=== PATIENT | male | born 1935 | race Caucasian/White ===

== ENCOUNTER 2017-05-10 11:25 | Outpatient (CLI) | payer MEDICARE, OTHER ==
[~2017-05-10] VITALS: Ht 175.3 cm; Wt 69.1 kg
--- NOTE | ~2017-05-10 | HEMODYNAMI ---
PATIENT:SATNAM LIU MEDICAL RECORD: [id number] : 35 LOCATION:D.CAT ADMISSION DATE: 05/10/17 Generatedon:05/10/201716:13 Patient name: SATNAM LIU Patient #: [id number] SSN: : 1935 Date of study: 05/10/2017 Page: Of Hemodynamic Procedure Report Patient Data Patient Demographics Procedure consent was obtained First Name: SATNAM Gender: Male Last Name: NOE : 1935 [facility] Initial: SARAH Age: 81 year(s) Patient #: [id number] Race: Additional ID: [id number] Contact details Address: [address] [place] [address] State: [place] City: [place] Zip code: [address] Past Medical History Allergies Allergen Reaction Date Comments Reported Penicillins 02/26/2014 Aspirin 02/26/2014 Other allergy 05/10/2017 PCN Admission Admission Data Admission Date: 05/10/2017 Admission Time: 11:25 Height (in.): 70 BSA: 1.89 (m2) Height (cm.): 177.8 BMI: 22.81 (kg/m2) Weight (lbs.): 159 Weight (kg.): 72.12 Procedure Procedure Types Cath Procedure Diagnostic Procedure C [facility] w/Coronaries Sedation Charges Moderate Sedation up to 30 minutes PCI Procedure Coronary Stent Coronary Stent Initial Procedure Description Procedure Date Procedure Date: 05/10/2017 Procedure Start Time: 15:45 Procedure End Time: 16:11 Procedure Staff Name Function Domingo Escoto MD Performing Physician Alejandra Figueroa RT Religion Teacher Franca Vela RT Monitor Cedrick Simon RT Scrub Dillon Orozco RN Nurse Procedure Data Cath Procedure Fluoroscopy Diagnostic fluoroscopy Total fluoroscopy Time: 6.1 time: 6.1 min min Diagnostic fluoroscopy Total fluoroscopy dose: dose: 1188 mGy 1188 mGy Contrast Material Contrast Material Type Amount (ml) Isovue 300 167 Entry Location Entry Primary Successful Side Size Upsize Upsize Entry Closure Succes sful Closure Location (Fr) 1 (Fr) 2 (Fr) Remarks Device Remarks Femoral Right 5 Fr 6 Fr Exoseal artery Short Estimated blood loss: 10 ml Diagnostic catheters Device Type Used For End Catheter Placement MULTIPACK JL 4.0 5Fr Procedure catheter MULTIPACK 3DRC 5Fr Procedure catheter MULTIPACK Pigtail 5 Fr Procedure catheter Procedure Complications No complications Procedure Medications Medication Administration Route Dosage Oxygen NC 2 l/min Lidocaine 2% added to field 20 Heparin Flush Bag added to field 2 bags (1000units/500ml NS) 0.9% NaCl I.V. 100 ml/hr Versed I.V. 1 mg Fentanyl I.V. 50 mcg Versed I.V. 1 mg Fentanyl I.V. 50 mcg Heparin Bolus I.V. 7000 units Versed I.V. 1 mg Plavix P.O. 600 mg Hemodynamics Rest BSA: 1.89 (m2) O2 Consumption: Estimated: 224.36 (ml/min) O2 Consumption indexed : Estimated:118.71 (ml/min/m) Heart Rate: 82 (bpm) Pressure Samples Time Site Value (mmHg) Purpose Heart Use Rate(bpm) 15:52 LV 98/-13,0 Snapshot 81 15:53 AO 100/52(72) Pullback 67 15:53 LV 104/-13,0 Pullback 67 Gradients Valve Time Site 1 Site 2 Mean SEP/DFP Peak To Heart Use (mmHg) (sec/min) Peak Rate (mmHg) (bpm) Aortic 15:53 LV AO 11 15 4 67 104/-13,0 100/52(72) Calculations Valve P-P Mean Valve Index Valve Source Name Gradient Area Flow (cm2) Aortic 4 11 4 11 Snapshots Pre Cath Intra NCS Post Cath Vital Signs Time Heart Resp SPO2 etCO2 NIBP (mmHg) Rhythm Pain Sedation Rate (ipm) (%) (mmHg) Status Level (bpm) 15:38:59 79 17 98 0 131/84(107) NSR 0 (11) 10(A) , No pain 15:43:13 83 15 97 0 104/67(77) NSR 0 (11) 10(A) , No pain 15:47:17 85 16 97 0 116/71(93) NSR 0 (11) 9(A) , No pain 15:51:27 83 17 98 0 115/71(92) NSR 0 (11) 9(A) , No pain 15:55:37 82 18 99 0 116/78(88) NSR 0 (11) 9(A) , No pain 15:59:47 81 18 99 0 109/70(90) NSR 0 (11) 9(A) , No pain 16:04:48 83 15 99 0 112/80(93) NSR 0 (11) 10(A) , No pain 16:08:51 81 15 99 0 126/84(105) NSR 0 (11) 10(A) , No pain Medications Time Medication Route Dose Verified Delivered Reason Notes Effectiveness by by 15:40:10 Oxygen NC 2 Domingo Buffie used for l/min Nick Orozco RN procedure 15:40:18 Lidocaine 2% added 20ml Domingo Domingo for local to vial Nick Escoto MD anesthetic field 15:40:24 Heparin Flush added 2 Domingo Domingo used for Bag to bags Nick Escoto MD procedure (1000units/500ml field NS) 15:40:32 0.9% NaCl I.V. 100 Domingo Buffie Per physician ml/hr Nick Orozco RN 15:40:42 Versed I.V. 1 mg Domingo Buffie for sedation Nick Orozco RN 15:40:47 Fentanyl I.V. 50 Domingo Buffie for sedation mcg Nick Orozco RN 15:45:24 Versed I.V. 1 mg Domingo Buffie for sedation Nick Orozco RN 15:45:29 Fentanyl I.V. 50 Domingo Buffie for sedation mcg Nick Orozco RN 15:58:08 Heparin Bolus I.V. 7000 Domingo Buffie for verifi ed units Nick Orozco RN anticoagulation with dr escoto 16:04:54 Versed I.V. 1 mg Domingo Buffie for sedation Nick Orozco RN 16:09:42 Plavix P.O. 600 Domingo Buffie for mg Nick Orozco RN antiplatelet therapy Procedure Log Time Note 15:20:32 Patient Height : 70 inches 15:20:49 Patient Weight : 159 lbs 15:25:12 Diagnostic Cath status Elective 15:25:58 Time tracking: Regular hours 15:26:11 Alejandra Counts RT(R) sent for patient. Start room use. 15:26:22 Patient received from Pre/Post Procedure Room to CCL 2 Alert and oriented. Tansferred to table in Supine position. 15:26:23 Warm blankets applied, and gabriel hugger turned on for patient comfort. 15::24 Correct patient and procedure confirmed by team. 15::26 Signed procedure consent form obtained from patient. 15:26:27 ECG and BP/O2 sat monitors applied to patient. 15:26:48 H&P Date Dictated: 04/25/2017 Within 30 days and on chart., H&P Addendum completed by physician on day of procedure. (MUST COMPLETE FOR ALL OUTPATIENTS). 15::49 Pre-procedure instructions explained to patient. 15::51 Family in waiting room. 15::53 Patient NPO since Midnight. 15:27:09 Patient allergic to Other allergyPCN 15:27:13 Was the patient premedicated? Yes 15:33:29 Is patient on blood thinner?No 15:33:32 Patient diabetic? No. 15:33:37 Snore? Yes 15:33:38 Sleep apnea? No 15:33:45 Dentures? No ? 15:33:49 Patient pain scale 0/10 ?. 15:34:06 IV patent on arrival in left antecubital with 0.9% NaCl at O. 15:35:01 Lab results completed and on chart. 15:35:06 Right groin area was prepped with chlora-prep and draped in sterile fashion 15:35:07 Alarms reviewed by R. N. 15:35:07 Sharps counted by scrub and verified by R.N. 15:35:09 Physician paged 15:35:10 Physician arrived 15:35:10 --------ALL STOP TIME OUT------ 15:35:11 Final Timeout: patient, procedure, and site verified with staff and physician. All members of the team are in agreement. 15:35:15 Right groin site verified by team. 15:35:18 Physical assessment completed. ASA score P 2 - A patient with mild systemic disease as per Domingo Escoto MD. 15:35:22 Sedation plan: IV Moderate Sedation Medication:Versed, Fentanyl 15:37:59 Vital chart was started 15:40:10 Oxygen 2 l/min NC was administered by Dillon Orozco RN; used for procedure; 15:40:18 Lidocaine 2% 20ml vial added to field was administered by Domingo Escoto MD; for local anesthetic; 15:40:24 Heparin Flush Bag (1000units/500ml NS) 2 bags added to field was administered by Domingo Escoto MD; used for procedure; 15:40:32 0.9% NaCl 100 ml/hr I.V. was administered by Dillon Orozco RN; Per physician; 15:40:42 Versed 1 mg I.V. was administered by Dillon Orozco RN; for sedation; 15:40:47 Fentanyl 50 mcg I.V. was administered by Dillon Orozco RN; for sedation; 15:42:52 Full Disclosure recording started 15:42:56 Baseline sample Acquired. 15:43:07 Use device set Femoral Dx 15:43:09 ACIST Syringe (15418) opened to sterile field. 15:43:10 Bag Decanter (2002S) opened to sterile field. 15:43:10 Medline Cath Pack ([id number]) opened to sterile field. 15:43:11 SHEATH 5FR Hernandez (MCO353) opened to sterile field. 15:43:11 DIAGNOSTIC WIRE .035 260cm J wire (363684) opened to sterile field. 15:43:12 ACIST Hand Control (62852) opened to sterile field. 15:43:13 ACIST Manifold (18613) opened to sterile field. 15:43:13 DIAGNOSTIC Multipack 5Fr catheter set (CX1521) opened to sterile field. 15:43:13 Tegaderm 4 x 4 (1626W) opened to sterile field. 15:43:14 PERCUTANEOUS ENTRY 19GA needle opened to sterile field. 15:44:56 Procedure started. 15:45:24 Versed 1 mg I.V. was administered by Dillon Orozco RN; for sedation; 15:45:29 Fentanyl 50 mcg I.V. was administered by Dillon Orozco RN; for sedation; 15:45:48 Local anesthetic to right femoral artery with Lidocaine 2% by Domingo Escoto MD.INITIAL ACCESS ONLY 15:46:37 A 5 Fr sheath was inserted into the Right Femoral artery 15:47:41 A MULTIPACK JL 4.0 5Fr catheter was advanced over the wire and used for Procedure. 15:47:53 LCA angiography performed. 15:49:44 Catheter removed. 15:50:44 A MULTIPACK 3DRC 5Fr catheter was advanced over the wire and used for Procedure. 15:51:12 RCA angiography performed. 15:51:16 Catheter removed. 15:51:22 A MULTIPACK Pigtail 5 Fr catheter was advanced over the wire and used for Procedure. 15:52:02 LV gram done using ARROYO 15:52:49 EF : 45 % 15:53:52 Proceeding to intervention. 15:55:42 LUGE Straight 300cm 0.014 guide wire ([id number]) opened to sterile field. 15:55:42 TUBING High Pressure Extension Tubing (Nick) (EV3375J) opened to sterile field. 15:55:44 SHEATH 6FR Hernandez (DYM959) opened to sterile field. 15:55:45 INFLATOR Merit BasixCompak (MK7308) opened to sterile field. 15:55:57 Sheath upsized to a 6 Fr Short. 15:56:43 GUIDE 6FR XBLAD 3.5 catheter ([id number]) opened to sterile field. 15:57:01 6 Fr xblad3.5 guide catheter was inserted over the wire 15:57:07 luge wire advanced. 15:58:08 Heparin Bolus 7000 units I.V. was administered by Dillon Orozco RN; for anticoagulation; verified with dr escoto 16:04:54 Versed 1 mg I.V. was administered by Dillon Orozco RN; for sedation; 16:06:24 Inflation Number: 1 A ELUNIR 3.0 x 12 stent ([id number]) was prepped and advanced across the 1st Ob Steff. The stent was deployed at 14 KEELY for 0:13 (min:sec). 16:08:11 Wire removed. 16:08:12 Guide catheter removed. 16:08:20 EXOSEAL 6Fr (EX600) opened to sterile field. 16:08:47 Sheath removed intact; hemostasis achieved with Exoseal to the Right Femoral artery. 16:08:51 Procedure ended.(Physican Out) 16:09:26 Fluoroscopy time 06.10 minutes. 16:09:30 Flurop Dose total: 1188 16:09:30 Fluoroscopy dose: 1188 mGy 16:09:35 Contrast amount:Isovue 300 167ml. 16:09:36 Sharps counted by scrub and verified by R.N. 16:09:38 Insertion/operative site no bleeding no hematoma. 16:09:40 Post Procedure Pulses reassessed and unchanged 16:09:42 Plavix 600 mg P.O. was administered by Dillon Orozco RN; for antiplatelet therapy; 16:09:44 Post-procedure physical assessment completed. ASA score P 2 - A patient with mild systemic disease as per Domingo Escoto MD. 16:09:51 Post procedure rhythm: unchanged. 16:09:54 Estimated blood loss: 10 ml 16:09:56 Post procedure instruction explained to patient.Patient verbalizes understanding. 16:10:27 Procedure type changed to Cath procedure, Diagnostic procedure, LHC, LHC w/Coronaries, Sedation Charges, Moderate Sedation up to 30 minutes, PCI procedure, Coronary Stent, Coronary Stent Initial 16:10:28 Procedure and supply charges have been captured, reviewed, submitted and are correct. 16:10:50 Procedure Complication : No complications 16:10:53 Vital chart was stopped 16:10:54 See physician's report for complete and final results. 16:10:59 Report given to Pre/Post Procedure Room. 16:11:01 Patient transfered to Pre/Post Procedure Room with Stretcher. 16:11:04 Procedure ended. 16:11:04 Full Disclosure recording stopped 16:11:08 End room use (Document Last) 16:11:15 ACC-PCI Only Patient was given prescriptions, or instructed by Domingo Escoto MD to start/continue the following medications upon discharge: Plavix Intervention Summary Intervention Notes Time ActionType Lesion and Equipment Action# Pressure Duration Attributes Used 16:06:24 Place stent 1st Ob Steff ELUNIR 3.0 x 1 14 00:13 12 stent ([id number]) Device Usage Item Name Manufacture Quantity Catalog Hospital Part Current Mini mal Lot# / Number Charge Number Stock Stock Serial# Code ACIST Syringe Acist 1 45209 308346 859766 827381 20 (29282) Medical Systems Inc Bag Decanter Microtek 1 2001S 247994 23553 375121 5 () Medical Inc. Medline Cath Cardinal 1 [id number] 152334 [address] [facility] ([id number]) SHEATH 5FR Terumo 1 AAU602 191859 695408 133470 40 Hernandez (DHI972) DIAGNOSTIC St Brandyn 1 271731 821051 791231 393970 30 WIRE .035 260cm J wire (344251) ACIST Hand Acist 1 70119 742503 179334 680809 5 Control Medical (52670) Systems Inc ACIST Acist 1 29904 050651 212832 652828 5 Manifold Medical (04383) Systems Inc DIAGNOSTIC Cardinal 1 NW7365 744980 66948 990199 30 Multipack 5Fr Health catheter set (HZ3598) Tegaderm 4 x 3M 1 1626W 561973 438395 031461 5 4 (1626W) PERCUTANEOUS Cook Medical 1 U56828 623632 783313 5 ENTRY 19GA needle MULTIPACK JL Cardinal 1 115450 5 4.0 5Fr Health catheter MULTIPACK Cardinal 1 345550 5 3DRC 5Fr Health catheter MULTIPACK Cardinal 1 813227 5 Pigtail 5 Fr Health catheter LUGE Straight [place] 1 [id number] 264980 176158 907956 5 300cm 0.014 Scientific guide wire (84490113) TUBING High Merit 1 [id number] 699824 69858 960708 10 Pressure Medical Extension Tubing (Escoto) ([id number]) SHEATH 6FR Terumo 1 SEA234 439200 608849 227567 40 Hernandez (NUP837) INFLATOR Merit 1 IB6546 784626 051659 534710 15 Merit Medical BasixCompak (EV2507) GUIDE 6FR Cardinal 1 [id number] 650410 173228 304218 10 XBLAD 3.5 Health catheter (47449513) ELUNIR 3.0 x Cardinal 1 [id number] 662683 783933 448956 5 [id number] 12 stent Health ([id number]) EXOSEAL 6Fr Cardinal 1 EX600 839481 793281 179460 10 (EX600) Health Signature Audit [place] Stage Time Signature Unsigned Intra-Procedure 05/10/2017 Franca Vela 4:13:13 PM RT(R) Signatures Monitor : Franca Vela Signature : RT Date : Time : [facility] [address] [place] [address]
[~2017-05-10 11:25] MED LIST: ACYCLOVIR15 GM TOPICAL; CARDURA8 MG PO; EFFEXOR37.5 MG PO; FLOMAX0.4 MG PO; FUROSEMIDE40 MG PO; HYDROCODONE-APA1 TAB PO; LIPITOR10 MG PO; LOPRESSOR25 MG PO; LYRICA75 MG PO; MARINOL5 MG PO; MEGACE40 MG PO; PLAVIX75 MG PO; PREVACID SOLUTA30 MG PO; PREVACID30 MG PO; PRINIVIL20 MG PO; VALTREX500 MG; VITAMIN D250000 UNIT PO; ZESTORETIC 20/21 TAB PO
[2017-05-10] MEDS ORDERED: OXYCONTIN10 MG PO ×2 (11:49)
[2017-05-10] MEDS ORDERED: BENADRYL25 MG PO (11:50)
[2017-05-10] MEDS ORDERED: ADVIL200 MG PO (11:50)
[2017-05-10 11:52] VITALS: BP 145/85; BMI 22.5
[2017-05-10 12:04] LABS: BASOPHILS 0.4 % (0-2); EOSINOPHILS 4.8 % (0-7); HEMATOCRIT 40.9 % (42.0-54.0); HEMOGLOBIN 13.5 g/dL (13.5-17.5); IMMATURE GRANULOCYTES 0.3 % (0-5); LYMPHOCYTES 27.1 % (15-50); MCH 30.5 pg (26.0-34.0); MCV 92.5 fL (80.0-100.0); MEAN PLATELET VOLUME 10.2 fL (7.4-10.4); NEUTROPHILS 55.4 % (40-80); PLATELET COUNT 194 10x3/uL (130-400); RBC 4.42 10x6/uL (4.20-6.10); RDW 13.5 % (11.5-14.5); WBC 7.9 10x3/uL (4.8-10.8)
[2017-05-10 12:25] LABS: ANION GAP 14.7 mmol/L (8-16); CALCIUM 10.5 mg/dL (8.5-10.1); CARBON DIOXIDE 22.2 mmol/L (21.0-32.0); CREATININE - SERUM 1.9 mg/dL (0.6-1.3); POTASSIUM - SERUM 4.9 mmol/L (3.5-5.1)
[2017-05-10 19:00] VITALS: BP 98/58
[2017-05-10 23:37] VITALS: Ht 175.3 cm; Wt 69.1 kg
[2017-05-11 08:21] VITALS: BP 119/66
[2017-05-11] MEDS ORDERED: PLAVIX75 MG PO (09:19)
== END 2017-05-11 11:52 | disposition home or self-care (01) ==
LOC: D.CATH 11:25 → D.M2 18:36 → D.CATH 05-11 11:52
PROVIDERS: Internal Medicine Cardiovascular Disease
DX: I25.110 Atherosclerotic heart disease of native coronary artery with unstable angina pectoris (principal); I65.23 Occlusion and stenosis of bilateral carotid arteries; F17.200 Nicotine dependence, unspecified, uncomplicated; I10 Essential (primary) hypertension; Z01.812 Encounter for preprocedural laboratory examination
CPT/HCPCS: 93458; C9600

== ENCOUNTER 2017-08-30 16:06 | Inpatient (IN) | payer MEDICARE, OTHER ==
[~2017-08-30] VITALS: Ht 175.3 cm; Wt 72.7 kg
[~2017-08-30 16:06] MED LIST changes: +ADVIL200 MG PO; +BENADRYL25 MG PO; +OXYCONTIN10 MG PO
[2017-08-30 16:25] LABS: BASOPHILS 0.1 % (0-2); EOSINOPHILS 0.2 % (0-7); HEMATOCRIT 48.9 % (42.0-54.0); HEMOGLOBIN 15.8 g/dL (13.5-17.5); IMMATURE GRANULOCYTES 0.3 % (0-5); MCH 30.5 pg (26.0-34.0); MCHC 32.3 g/dL (31.0-37.0); MCV 94.4 fL (80.0-100.0); MEAN PLATELET VOLUME 11.3 fL (7.4-10.4); MONOCYTES 7.9 % (2-11); NEUTROPHILS 82.5 % (40-80); PLATELET COUNT 180 10x3/uL (130-400); RBC 5.18 10x6/uL (4.20-6.10); RDW 16.1 % (11.5-14.5); WBC 18.2 10x3/uL (4.8-10.8)
[2017-08-30 16:55] LABS: ALBUMIN 2.8 g/dL (3.4-5.0); ALKALINE PHOSPHATASE 111 U/L (46-116); ALT (SGPT) 114 U/L (10-68); CALC OSMOLALITY 344 mosm/kg (275-300); CARBON DIOXIDE 19.6 mmol/L (21.0-32.0); CKMB 9.4 U/L (0.0-3.6); CREATININE - SERUM 2.8 mg/dL (0.6-1.3); GLUCOSE 130 mg/dL (74-106); POTASSIUM - SERUM 5.1 mmol/L (3.5-5.1); PROTEIN - SERUM 8.2 g/dL (6.4-8.2); SODIUM 155 mmol/L (136-145); UREA NITROGEN 114 mg/dL (7-18); eGFR NON AFRICAN AMERICAN 23 mL/min (90-120)
[2017-08-30 16:58] LABS: CHLORIDE - SERUM 122 mmol/L (98-107); CREATINE KINASE 1063 UL (21-232)
[2017-08-30 16:59] LABS: TROPONIN-I 0.152 ng/mL (0.000-0.060)
[2017-08-30 17:00] VITALS: BP 122/87
[2017-08-30 18:00] VITALS: BP 106/77
[2017-08-30 19:00] VITALS: BP 130/89
[2017-08-30 19:09] LABS: APPEARANCE TURBID (CLEAR); COLOR YELLOW (YELLOW); SPECIFIC GRAVITY 1.015 (1.005-1.020)
[2017-08-30 19:10] LABS: BACTERIA MODERATE /hpf (NONE SEEN); BILIRUBIN NEGATIVE (NEGATIVE); EPITHELIAL CELLS RARE /hpf (0-5); GLUCOSE NEGATIVE (NEGATIVE); KETONE NEGATIVE (NEGATIVE); NITRITE NEGATIVE (NEGATIVE); PROTEIN 1+ mg/dL (NEGATIVE); UROBILINOGEN NORMAL (NORMAL); WHITE CELLS - URINE >50 /hpf (0-5)
[2017-08-30] MEDS ORDERED: OXYCONTIN10 MG PO (22:01)
[2017-08-30 22:48] VITALS: BP 126/88
[2017-08-31 01:16] VITALS: BP 132/87
[2017-08-31 04:30] VITALS: BP 148/82
[2017-08-31 06:57] LABS: BASOPHILS 0.2 % (0-2); EOSINOPHILS 1.3 % (0-7); HEMATOCRIT 48.6 % (42.0-54.0); IMMATURE GRANULOCYTES 0.2 % (0-5); LYMPHOCYTES 11.4 % (15-50); MCH 29.6 pg (26.0-34.0); MCHC 30.9 g/dL (31.0-37.0); MCV 95.9 fL (80.0-100.0); MEAN PLATELET VOLUME 11.5 fL (7.4-10.4); MONOCYTES 11.2 % (2-11); NEUTROPHILS 75.7 % (40-80); PLATELET COUNT 150 10x3/uL (130-400); RBC 5.07 10x6/uL (4.20-6.10); RDW 16.1 % (11.5-14.5); WBC 14.5 10x3/uL (4.8-10.8)
[2017-08-31 07:17] LABS: ANION GAP 16.1 mmol/L (8-16); CALCIUM 10.3 mg/dL (8.5-10.1); CARBON DIOXIDE 22.4 mmol/L (21.0-32.0); CREATININE - SERUM 2.4 mg/dL (0.6-1.3); MAGNESIUM - SERUM 3.3 mg/dL (1.8-2.4); POTASSIUM - SERUM 4.5 mmol/L (3.5-5.1)
[2017-08-31 08:01] VITALS: BP 122/82
[2017-08-31 11:21] VITALS: BP 128/74
[2017-08-31 12:45] VITALS: BMI 17.7
[2017-08-31 15:33] VITALS: BP 122/76
[2017-08-31 16:25] LABS: CALCIUM 10.7 mg/dL (8.5-10.1); CARBON DIOXIDE 23.1 mmol/L (21.0-32.0); CREATININE - SERUM 2.1 mg/dL (0.6-1.3); POTASSIUM - SERUM 4.1 mmol/L (3.5-5.1)
[2017-08-31 20:57] VITALS: BP 132/90
[2017-09-01 01:26] VITALS: BP 115/71
[2017-09-01 04:00] VITALS: BP 113/71
[2017-09-01 08:17] LABS: CREATINE KINASE 562 UL (21-232)
[2017-09-01 08:19] LABS: CKMB 3.5 U/L (0.0-3.6)
[2017-09-01 08:30] VITALS: BP 124/68
[2017-09-01 12:01] VITALS: BP 122/66
[2017-09-01 13:42] LABS: BASOPHILS 0.3 % (0-2); EOSINOPHILS 1.9 % (0-7); HEMATOCRIT 43.4 % (42.0-54.0); HEMOGLOBIN 13.4 g/dL (13.5-17.5); IMMATURE GRANULOCYTES 0.3 % (0-5); LYMPHOCYTES 13.9 % (15-50); MCH 30.1 pg (26.0-34.0); MCHC 30.9 g/dL (31.0-37.0); MCV 97.5 fL (80.0-100.0); MEAN PLATELET VOLUME 11.9 fL (7.4-10.4); MONOCYTES 11.7 % (2-11); NEUTROPHILS 71.9 % (40-80); PLATELET COUNT 154 10x3/uL (130-400); RBC 4.45 10x6/uL (4.20-6.10); RDW 16.2 % (11.5-14.5); WBC 11.8 10x3/uL (4.8-10.8)
[2017-09-01 13:52] LABS: ALBUMIN 2.4 g/dL (3.4-5.0); BILIRUBIN - TOTAL 0.36 mg/dL (0.2-1.3); CALCIUM 10.2 mg/dL (8.5-10.1); CARBON DIOXIDE 18.6 mmol/L (21.0-32.0); POTASSIUM - SERUM 4.1 mmol/L (3.5-5.1); PROTEIN - SERUM 7.1 g/dL (6.4-8.2)
[2017-09-01 13:54] LABS: ANION GAP 16.5 mmol/L (8-16)
[2017-09-01 16:14] VITALS: BP 159/87
[2017-09-01 20:00] VITALS: BP 119/74
[2017-09-02] VITALS: BP 122/75
[2017-09-02 04:00] VITALS: BP 130/70
[2017-09-02 04:56] LABS: BASOPHILS 0.1 % (0-2); EOSINOPHILS 2.9 % (0-7); HEMATOCRIT 39.2 % (42.0-54.0); HEMOGLOBIN 12.4 g/dL (13.5-17.5); IMMATURE GRANULOCYTES 0.4 % (0-5); LYMPHOCYTES 15.9 % (15-50); MCH 29.9 pg (26.0-34.0); MCHC 31.6 g/dL (31.0-37.0); MCV 94.5 fL (80.0-100.0); MEAN PLATELET VOLUME 11.6 fL (7.4-10.4); MONOCYTES 11.6 % (2-11); NEUTROPHILS 69.1 % (40-80); PLATELET COUNT 158 10x3/uL (130-400); RBC 4.15 10x6/uL (4.20-6.10); RDW 15.4 % (11.5-14.5); WBC 9.4 10x3/uL (4.8-10.8)
[2017-09-02 05:23] LABS: ALBUMIN 2.2 g/dL (3.4-5.0); ANION GAP 13.1 mmol/L (8-16); BILIRUBIN - TOTAL 0.42 mg/dL (0.2-1.3); CALCIUM 9.9 mg/dL (8.5-10.1); CARBON DIOXIDE 19.4 mmol/L (21.0-32.0); CREATININE - SERUM 1.7 mg/dL (0.6-1.3); POTASSIUM - SERUM 3.5 mmol/L (3.5-5.1); PROTEIN - SERUM 6.8 g/dL (6.4-8.2)
[2017-09-02 07:51] LABS: CREATINE KINASE 313 UL (21-232)
[2017-09-02 07:59] VITALS: BP 120/72
[2017-09-02 10:06] VITALS: Ht 175.3 cm; Wt 72.7 kg
[2017-09-02 11:06] VITALS: BP 112/75
[2017-09-02 15:06] VITALS: BP 112/64
[2017-09-02 20:00] VITALS: BP 114/74
[2017-09-03] VITALS: BP 123/76
[2017-09-03 04:00] VITALS: BP 102/61
[2017-09-03 05:08] LABS: BASOPHILS 0.1 % (0-2); EOSINOPHILS 3.2 % (0-7); HEMATOCRIT 38.4 % (42.0-54.0); HEMOGLOBIN 12.1 g/dL (13.5-17.5); IMMATURE GRANULOCYTES 0.2 % (0-5); LYMPHOCYTES 19.5 % (15-50); MCH 29.4 pg (26.0-34.0); MCHC 31.5 g/dL (31.0-37.0); MCV 93.2 fL (80.0-100.0); MEAN PLATELET VOLUME 11.2 fL (7.4-10.4); MONOCYTES 12.8 % (2-11); NEUTROPHILS 64.2 % (40-80); PLATELET COUNT 144 10x3/uL (130-400); RBC 4.12 10x6/uL (4.20-6.10); RDW 14.9 % (11.5-14.5); WBC 8.8 10x3/uL (4.8-10.8)
[2017-09-03 05:34] LABS: ALBUMIN 2.2 g/dL (3.4-5.0); BILIRUBIN - TOTAL 0.45 mg/dL (0.2-1.3); CALCIUM 9.3 mg/dL (8.5-10.1); CARBON DIOXIDE 19.3 mmol/L (21.0-32.0); CREATININE - SERUM 1.5 mg/dL (0.6-1.3); POTASSIUM - SERUM 3.3 mmol/L (3.5-5.1)
[2017-09-03 08:43] VITALS: BP 136/72
[2017-09-03 11:19] VITALS: BP 132/77
[2017-09-03 15:27] VITALS: BP 128/76
[2017-09-03 20:00] VITALS: BP 104/63
[2017-09-04] VITALS: BP 123/81
[2017-09-04 04:00] VITALS: BP 126/66
[2017-09-04 06:12] LABS: BASOPHILS 0.1 % (0-2); EOSINOPHILS 3.5 % (0-7); HEMATOCRIT 38.2 % (42.0-54.0); HEMOGLOBIN 12.5 g/dL (13.5-17.5); IMMATURE GRANULOCYTES 0.3 % (0-5); LYMPHOCYTES 12.6 % (15-50); MCH 29.6 pg (26.0-34.0); MCHC 32.7 g/dL (31.0-37.0); MEAN PLATELET VOLUME 11.1 fL (7.4-10.4); MONOCYTES 9.8 % (2-11); NEUTROPHILS 73.7 % (40-80); PLATELET COUNT 159 10x3/uL (130-400); RBC 4.23 10x6/uL (4.20-6.10); RDW 14.4 % (11.5-14.5); WBC 9.2 10x3/uL (4.8-10.8)
[2017-09-04 06:15] LABS: MCV 90.3 fL (80.0-100.0)
[2017-09-04 06:41] LABS: ALBUMIN 2.1 g/dL (3.4-5.0); ANION GAP 12.2 mmol/L (8-16); BILIRUBIN - TOTAL 0.28 mg/dL (0.2-1.3); CALCIUM 8.8 mg/dL (8.5-10.1); CARBON DIOXIDE 20.8 mmol/L (21.0-32.0); CREATININE - SERUM 1.4 mg/dL (0.6-1.3); PROTEIN - SERUM 6.6 g/dL (6.4-8.2)
[2017-09-04 08:47] VITALS: BP 125/84
[2017-09-04 17:26] VITALS: BP 98/68
[2017-09-04 20:00] VITALS: BP 116/89
[2017-09-05] VITALS: BP 105/73
[2017-09-05 05:41] LABS: BASOPHILS 0.3 % (0-2); EOSINOPHILS 5.1 % (0-7); HEMOGLOBIN 12.5 g/dL (13.5-17.5); IMMATURE GRANULOCYTES 0.5 % (0-5); LYMPHOCYTES 19.1 % (15-50); MCH 29.4 pg (26.0-34.0); MCHC 32.1 g/dL (31.0-37.0); MCV 91.8 fL (80.0-100.0); MEAN PLATELET VOLUME 11.3 fL (7.4-10.4); MONOCYTES 12.1 % (2-11); NEUTROPHILS 62.9 % (40-80); PLATELET COUNT 152 10x3/uL (130-400); RBC 4.25 10x6/uL (4.20-6.10); RDW 14.6 % (11.5-14.5)
[2017-09-05 06:05] LABS: BILIRUBIN - TOTAL 0.18 mg/dL (0.2-1.3); CALCIUM 8.9 mg/dL (8.5-10.1); CARBON DIOXIDE 18.3 mmol/L (21.0-32.0); CREATININE - SERUM 1.4 mg/dL (0.6-1.3); PROTEIN - SERUM 6.6 g/dL (6.4-8.2)
[2017-09-05 06:18] LABS: ANION GAP 13.7 mmol/L (8-16)
[2017-09-05 08:33] VITALS: BP 110/79
[2017-09-05 11:43] VITALS: BP 121/85
[2017-09-05 15:42] VITALS: BP 120/77
[2017-09-05 20:23] VITALS: BP 119/83
[2017-09-06 00:47] VITALS: BP 98/71
[2017-09-06 06:01] VITALS: BP 119/87
[2017-09-06 06:26] LABS: BASOPHILS 0.1 % (0-2); HEMATOCRIT 36.2 % (42.0-54.0); IMMATURE GRANULOCYTES 0.5 % (0-5); LYMPHOCYTES 21.3 % (15-50); MCH 29.3 pg (26.0-34.0); MCHC 33.1 g/dL (31.0-37.0); MONOCYTES 11.3 % (2-11); NEUTROPHILS 62.8 % (40-80); RDW 14.4 % (11.5-14.5); WBC 8.6 10x3/uL (4.8-10.8)
[2017-09-06 06:44] LABS: MCV 88.3 fL (80.0-100.0); PLATELET COUNT 197 10x3/uL (130-400)
[2017-09-06 06:55] LABS: ALBUMIN 2.1 g/dL (3.4-5.0); BILIRUBIN - TOTAL 0.29 mg/dL (0.2-1.3); CALCIUM 9.1 mg/dL (8.5-10.1); CARBON DIOXIDE 19.8 mmol/L (21.0-32.0); CREATININE - SERUM 1.2 mg/dL (0.6-1.3); PROTEIN - SERUM 6.5 g/dL (6.4-8.2)
[2017-09-06 07:03] LABS: ANION GAP 16.2 mmol/L (8-16)
[2017-09-06 08:08] VITALS: BP 134/81
[2017-09-06 15:25] VITALS: BP 125/69
[2017-09-06 20:22] VITALS: BP 99/70
[2017-09-07 00:20] VITALS: BP 128/78
[2017-09-07 05:41] LABS: BASOPHILS 0.2 % (0-2); EOSINOPHILS 4.5 % (0-7); HEMATOCRIT 37.7 % (42.0-54.0); HEMOGLOBIN 12.5 g/dL (13.5-17.5); IMMATURE GRANULOCYTES 0.5 % (0-5); LYMPHOCYTES 18.8 % (15-50); MCH 29.3 pg (26.0-34.0); MCHC 33.2 g/dL (31.0-37.0); MCV 88.3 fL (80.0-100.0); MEAN PLATELET VOLUME 10.4 fL (7.4-10.4); MONOCYTES 11.6 % (2-11); NEUTROPHILS 64.4 % (40-80); PLATELET COUNT 228 10x3/uL (130-400); RBC 4.27 10x6/uL (4.20-6.10); RDW 14.6 % (11.5-14.5); WBC 8.3 10x3/uL (4.8-10.8)
[2017-09-07 05:53] VITALS: BP 111/78
[2017-09-07 06:08] LABS: ALBUMIN 2.2 g/dL (3.4-5.0); BILIRUBIN - TOTAL 0.25 mg/dL (0.2-1.3); CALCIUM 9.3 mg/dL (8.5-10.1); CARBON DIOXIDE 23.3 mmol/L (21.0-32.0); CREATININE - SERUM 1.2 mg/dL (0.6-1.3); PROTEIN - SERUM 6.9 g/dL (6.4-8.2)
[2017-09-07 06:14] LABS: ANION GAP 11.7 mmol/L (8-16)
[2017-09-07 08:33] VITALS: BP 123/72
[2017-09-07 12:55] VITALS: BP 123/81
[2017-09-07 15:38] VITALS: BP 107/77
[2017-09-07 20:00] VITALS: BP 130/92
[2017-09-08] VITALS: BP 147/84
[2017-09-08 04:00] VITALS: BP 123/70
[2017-09-08 04:53] LABS: BASOPHILS 0.1 % (0-2); EOSINOPHILS 4.5 % (0-7); HEMATOCRIT 36.2 % (42.0-54.0); HEMOGLOBIN 11.7 g/dL (13.5-17.5); IMMATURE GRANULOCYTES 0.3 % (0-5); LYMPHOCYTES 22.1 % (15-50); MCH 28.8 pg (26.0-34.0); MCHC 32.3 g/dL (31.0-37.0); MCV 89.2 fL (80.0-100.0); MEAN PLATELET VOLUME 10.6 fL (7.4-10.4); MONOCYTES 12.4 % (2-11); NEUTROPHILS 60.6 % (40-80); PLATELET COUNT 221 10x3/uL (130-400); RBC 4.06 10x6/uL (4.20-6.10); RDW 14.7 % (11.5-14.5); WBC 7.3 10x3/uL (4.8-10.8)
[2017-09-08 05:16] LABS: ALBUMIN 2.1 g/dL (3.4-5.0); ANION GAP 13.1 mmol/L (8-16); BILIRUBIN - TOTAL 0.23 mg/dL (0.2-1.3); CALCIUM 9.2 mg/dL (8.5-10.1); CARBON DIOXIDE 21.4 mmol/L (21.0-32.0); CREATININE - SERUM 1.2 mg/dL (0.6-1.3); POTASSIUM - SERUM 3.5 mmol/L (3.5-5.1); PROTEIN - SERUM 6.5 g/dL (6.4-8.2)
[2017-09-08 09:30] VITALS: BP 100/66
[2017-09-08 12:47] VITALS: BP 120/80
[2017-09-08 16:54] VITALS: BP 112/71
[2017-09-08 17:13] LABS: AEROBE ID Final report (()); RESULT 1 Gemella sanguinis (())
[2017-09-08 20:30] VITALS: BP 116/74
[2017-09-09] VITALS: BP 121/73
[2017-09-09 04:00] VITALS: BP 110/65
[2017-09-09 05:26] LABS: BASOPHILS 0.3 % (0-2); EOSINOPHILS 5.2 % (0-7); HEMATOCRIT 36.1 % (42.0-54.0); HEMOGLOBIN 11.9 g/dL (13.5-17.5); IMMATURE GRANULOCYTES 0.3 % (0-5); LYMPHOCYTES 20.5 % (15-50); MCH 29.4 pg (26.0-34.0); MCV 89.1 fL (80.0-100.0); MEAN PLATELET VOLUME 10.3 fL (7.4-10.4); MONOCYTES 10.1 % (2-11); NEUTROPHILS 63.6 % (40-80); PLATELET COUNT 247 10x3/uL (130-400); RBC 4.05 10x6/uL (4.20-6.10); RDW 14.6 % (11.5-14.5); WBC 7.7 10x3/uL (4.8-10.8)
[2017-09-09 05:56] LABS: ALBUMIN 2.2 g/dL (3.4-5.0); ANION GAP 8.2 mmol/L (8-16); BILIRUBIN - TOTAL 0.16 mg/dL (0.2-1.3); CALCIUM 9.6 mg/dL (8.5-10.1); CARBON DIOXIDE 21.4 mmol/L (21.0-32.0); CREATININE - SERUM 1.3 mg/dL (0.6-1.3); POTASSIUM - SERUM 3.6 mmol/L (3.5-5.1); PROTEIN - SERUM 6.6 g/dL (6.4-8.2)
[2017-09-09 08:24] VITALS: BP 146/87
[2017-09-09 12:50] VITALS: BP 140/74
[2017-09-09 16:30] VITALS: BP 133/67
[2017-09-09 20:30] VITALS: BP 107/56
[2017-09-10 04:30] VITALS: BP 144/82
[2017-09-10 06:11] LABS: BASOPHILS 0.2 % (0-2); EOSINOPHILS 4.6 % (0-7); HEMATOCRIT 36.6 % (42.0-54.0); IMMATURE GRANULOCYTES 0.4 % (0-5); LYMPHOCYTES 21.7 % (15-50); MCH 29.3 pg (26.0-34.0); MCHC 32.8 g/dL (31.0-37.0); MCV 89.3 fL (80.0-100.0); MEAN PLATELET VOLUME 10.7 fL (7.4-10.4); MONOCYTES 11.8 % (2-11); NEUTROPHILS 61.3 % (40-80); PLATELET COUNT 258 10x3/uL (130-400); RDW 14.8 % (11.5-14.5); WBC 8.1 10x3/uL (4.8-10.8)
[2017-09-10 06:40] LABS: ALBUMIN 2.2 g/dL (3.4-5.0); ANION GAP 8.6 mmol/L (8-16); BILIRUBIN - TOTAL 0.18 mg/dL (0.2-1.3); CALCIUM 9.3 mg/dL (8.5-10.1); CARBON DIOXIDE 22.8 mmol/L (21.0-32.0); CREATININE - SERUM 1.2 mg/dL (0.6-1.3); POTASSIUM - SERUM 3.4 mmol/L (3.5-5.1); PROTEIN - SERUM 6.6 g/dL (6.4-8.2)
[2017-09-10 08:53] VITALS: BP 127/85
[2017-09-10 12:19] VITALS: BP 128/79
[2017-09-10 16:53] VITALS: BP 108/66
[2017-09-10 19:09] LABS: AEROBE ID Final report (())
[2017-09-10 20:48] VITALS: BP 114/69
[2017-09-11 01:05] VITALS: BP 144/88
[2017-09-11 05:15] VITALS: BP 141/94
[2017-09-11 05:17] LABS: BASOPHILS 0.5 % (0-2); HEMATOCRIT 38.4 % (42.0-54.0); HEMOGLOBIN 12.4 g/dL (13.5-17.5); IMMATURE GRANULOCYTES 0.4 % (0-5); LYMPHOCYTES 21.2 % (15-50); MCH 29.3 pg (26.0-34.0); MCHC 32.3 g/dL (31.0-37.0); MCV 90.8 fL (80.0-100.0); MEAN PLATELET VOLUME 9.9 fL (7.4-10.4); MONOCYTES 12.7 % (2-11); NEUTROPHILS 61.2 % (40-80); PLATELET COUNT 263 10x3/uL (130-400); RBC 4.23 10x6/uL (4.20-6.10); RDW 15.2 % (11.5-14.5); WBC 7.7 10x3/uL (4.8-10.8)
[2017-09-11 05:56] LABS: ALBUMIN 2.1 g/dL (3.4-5.0); ANION GAP 10.3 mmol/L (8-16); BILIRUBIN - TOTAL 0.16 mg/dL (0.2-1.3); CALCIUM 9.3 mg/dL (8.5-10.1); CARBON DIOXIDE 22.8 mmol/L (21.0-32.0); CREATININE - SERUM 1.2 mg/dL (0.6-1.3); PROTEIN - SERUM 6.4 g/dL (6.4-8.2)
[2017-09-11 05:57] LABS: POTASSIUM - SERUM 4.1 mmol/L (3.5-5.1)
[2017-09-11 08:42] VITALS: BP 126/81
[2017-09-11 12:27] VITALS: BP 122/72
[2017-09-11 16:52] VITALS: BP 123/81
[2017-09-11 20:48] VITALS: BP 119/84
[2017-09-12 06:57] VITALS: BP 108/47
[2017-09-12 09:18] VITALS: BP 128/89
[2017-09-12 12:39] VITALS: BP 129/84
[2017-09-12 16:34] VITALS: BP 131/86
[2017-09-12 21:08] VITALS: BP 110/71
[2017-09-13] VITALS (7 sets, daily range): BP systolic 92–142; BP diastolic 53–85
[2017-09-13 06:52] LABS: BASOPHILS 0.3 % (0-2); EOSINOPHILS 3.6 % (0-7); HEMATOCRIT 36.6 % (42.0-54.0); HEMOGLOBIN 11.7 g/dL (13.5-17.5); IMMATURE GRANULOCYTES 0.1 % (0-5); LYMPHOCYTES 18.4 % (15-50); MCV 90.8 fL (80.0-100.0); MEAN PLATELET VOLUME 9.9 fL (7.4-10.4); MONOCYTES 11.4 % (2-11); NEUTROPHILS 66.2 % (40-80); PLATELET COUNT 303 10x3/uL (130-400); RBC 4.03 10x6/uL (4.20-6.10); RDW 15.2 % (11.5-14.5); WBC 7.3 10x3/uL (4.8-10.8)
[2017-09-13 07:36] LABS: ALBUMIN 2.1 g/dL (3.4-5.0); ANION GAP 9.1 mmol/L (8-16); BILIRUBIN - TOTAL 0.17 mg/dL (0.2-1.3); CALCIUM 9.7 mg/dL (8.5-10.1); CARBON DIOXIDE 28.8 mmol/L (21.0-32.0); CREATININE - SERUM 1.2 mg/dL (0.6-1.3); POTASSIUM - SERUM 3.9 mmol/L (3.5-5.1); PROTEIN - SERUM 6.4 g/dL (6.4-8.2)
[2017-09-14 00:51] VITALS: BP 105/79
[2017-09-14 06:02] LABS: BASOPHILS 0.3 % (0-2); EOSINOPHILS 3.8 % (0-7); HEMATOCRIT 36.8 % (42.0-54.0); HEMOGLOBIN 11.8 g/dL (13.5-17.5); IMMATURE GRANULOCYTES 0.1 % (0-5); LYMPHOCYTES 21.8 % (15-50); MCH 29.2 pg (26.0-34.0); MCHC 32.1 g/dL (31.0-37.0); MCV 91.1 fL (80.0-100.0); MEAN PLATELET VOLUME 9.9 fL (7.4-10.4); MONOCYTES 11.1 % (2-11); NEUTROPHILS 62.9 % (40-80); PLATELET COUNT 314 10x3/uL (130-400); RBC 4.04 10x6/uL (4.20-6.10); RDW 15.3 % (11.5-14.5)
[2017-09-14 06:20] VITALS: BP 122/76
[2017-09-14 06:24] LABS: ALBUMIN 2.1 g/dL (3.4-5.0); BILIRUBIN - TOTAL 0.18 mg/dL (0.2-1.3); CALCIUM 9.7 mg/dL (8.5-10.1); CREATININE - SERUM 1.2 mg/dL (0.6-1.3); PROTEIN - SERUM 6.3 g/dL (6.4-8.2)
[2017-09-14 20:08] VITALS: BP 110/68
[2017-09-14 23:15] VITALS: BP 102/70
[2017-09-15 04:33] VITALS: BP 82/45
[2017-09-15 06:27] LABS: HEMATOCRIT 35.9 % (42.0-54.0); HEMOGLOBIN 11.9 g/dL (13.5-17.5); LYMPHOCYTES 20.7 % (15-50); MCH 29.6 pg (26.0-34.0); MCHC 33.1 g/dL (31.0-37.0); MCV 89.3 fL (80.0-100.0); MEAN PLATELET VOLUME 9.6 fL (7.4-10.4); NEUTROPHILS 65.6 % (40-80); PLATELET COUNT 279 10x3/uL (130-400); RBC 4.02 10x6/uL (4.20-6.10); RDW 14.2 % (11.5-14.5); WBC 7.1 10x3/uL (4.8-10.8)
[2017-09-15 06:40] LABS: ALBUMIN 2.1 g/dL (3.4-5.0); ANION GAP 9.8 mmol/L (8-16); BILIRUBIN - TOTAL 0.18 mg/dL (0.2-1.3); CALCIUM 9.9 mg/dL (8.5-10.1); CARBON DIOXIDE 29.1 mmol/L (21.0-32.0); CREATININE - SERUM 1.4 mg/dL (0.6-1.3); POTASSIUM - SERUM 3.9 mmol/L (3.5-5.1); PROTEIN - SERUM 6.4 g/dL (6.4-8.2)
[2017-09-15 19:44] VITALS: BP 121/74
[2017-09-16] VITALS: BP 119/74
[2017-09-16 04:00] VITALS: BP 117/68
[2017-09-16 05:46] LABS: BASOPHILS 0.3 % (0-2); EOSINOPHILS 3.6 % (0-7); HEMATOCRIT 38.1 % (42.0-54.0); HEMOGLOBIN 12.2 g/dL (13.5-17.5); IMMATURE GRANULOCYTES 0.3 % (0-5); LYMPHOCYTES 21.6 % (15-50); MCH 29.2 pg (26.0-34.0); MCV 91.1 fL (80.0-100.0); MEAN PLATELET VOLUME 9.9 fL (7.4-10.4); MONOCYTES 12.3 % (2-11); NEUTROPHILS 61.9 % (40-80); PLATELET COUNT 294 10x3/uL (130-400); RBC 4.18 10x6/uL (4.20-6.10); RDW 15.1 % (11.5-14.5); WBC 6.9 10x3/uL (4.8-10.8)
[2017-09-16 06:21] LABS: ALBUMIN 2.3 g/dL (3.4-5.0); ANION GAP 7.5 mmol/L (8-16); BILIRUBIN - TOTAL 0.27 mg/dL (0.2-1.3); CALCIUM 10.3 mg/dL (8.5-10.1); CARBON DIOXIDE 32.2 mmol/L (21.0-32.0); CREATININE - SERUM 1.4 mg/dL (0.6-1.3); POTASSIUM - SERUM 3.7 mmol/L (3.5-5.1); PROTEIN - SERUM 6.7 g/dL (6.4-8.2)
[2017-09-16 08:57] VITALS: BP 138/78
[2017-09-16 12:32] VITALS: BP 125/80
[2017-09-16 16:09] VITALS: BP 120/60
[2017-09-16] MEDS ORDERED: MIRALAX17 GM PO (18:12)
== END 2017-09-16 21:28 | disposition home health service (06) | DRG 393 ==
LOC: D.ER 16:06 → D.M2 20:17 → D.EDHOLD 20:17 → D.M2 20:45
PROVIDERS: Family Medicine
DX: T18.8XXA Foreign body in other parts of alimentary tract, initial encounter (principal); G92 Toxic encephalopathy; E43 Unspecified severe protein-calorie malnutrition; N17.9 Acute kidney failure, unspecified; N39.0 Urinary tract infection, site not specified; E87.0 Hyperosmolality and hypernatremia; E46 Unspecified protein-calorie malnutrition; Z68.1 Body mass index [BMI] 19.9 or less, adult; E86.0 Dehydration; I10 Essential (primary) hypertension; F41.8 Other specified anxiety disorders; E87.6 Hypokalemia; E78.00 Pure hypercholesterolemia, unspecified; B02.9 Zoster without complications; I71.4 Abdominal aortic aneurysm, without rupture; K59.00 Constipation, unspecified; X58.XXXA Exposure to other specified factors, initial encounter; Z86.73 Personal history of transient ischemic attack (TIA), and cerebral infarction without residual deficits; F03.90 Unspecified dementia, unspecified severity, without behavioral disturbance, psychotic disturbance, mood disturbance, and anxiety

== ENCOUNTER → 2017-10-13 16:05 | Outpatient (CLI) | payer MEDICARE, OTHER ==
[2017-09-02 10:06] VITALS: BMI 17.7
[~2017-10-13 16:05] MED LIST changes: +MIRALAX17 GM PO; +NAPROSYN500 MG PO; +SEROQUEL100 MG PO; +STOOL SOFTENER100 M1 PO; +TYLENOL W/CODEI1 TAB PO; +VITAMIN B-12500 MC1 PO
== END | disposition home or self-care (01) ==
LOC: D.CT 16:05
DX: R31.9 Hematuria, unspecified (principal)

== ENCOUNTER 2017-10-24 05:06 | Emergency (ER) | payer MEDICARE, OTHER ==
[~2017-10-24] VITALS: Ht 175.3 cm; Wt 81.8 kg
[~2017-10-24 05:06] MED LIST changes: -NAPROSYN500 MG PO; -SEROQUEL100 MG PO; -STOOL SOFTENER100 M1 PO; -TYLENOL W/CODEI1 TAB PO; -VITAMIN B-12500 MC1 PO
[2017-10-24 05:07] VITALS: Ht 175.3 cm; Wt 81.8 kg
[2017-10-24] MEDS ORDERED: PLAVIX75 MG PO (05:11)
[2017-10-24] MEDS ORDERED: MEGACE40 MG PO (05:11)
[2017-10-24 06:01] LABS: BASOPHILS 0.3 % (0-2); HEMATOCRIT 35.7 % (42.0-54.0); HEMOGLOBIN 11.4 g/dL (13.5-17.5); IMMATURE GRANULOCYTES 0.3 % (0-5); LYMPHOCYTES 26.9 % (15-50); MCH 28.7 pg (26.0-34.0); MCHC 31.9 g/dL (31.0-37.0); MCV 89.9 fL (80.0-100.0); MEAN PLATELET VOLUME 9.4 fL (7.4-10.4); MONOCYTES 12.2 % (2-11); NEUTROPHILS 51.3 % (40-80); RBC 3.97 10x6/uL (4.20-6.10); RDW 16.2 % (11.5-14.5); WBC 5.9 10x3/uL (4.8-10.8)
[2017-10-24 06:10] LABS: ANION GAP 12.3 mmol/L (8-16); CALCIUM 9.8 mg/dL (8.5-10.1); CARBON DIOXIDE 22.1 mmol/L (21.0-32.0); CREATININE - SERUM 2.3 mg/dL (0.6-1.3); MAGNESIUM - SERUM 2.2 mg/dL (1.8-2.4); PHOSPHOROUS 2.8 mg/dL (2.5-4.9); POTASSIUM - SERUM 4.4 mmol/L (3.5-5.1)
[2017-10-24 06:19] LABS: PLATELET COUNT 224 10x3/uL (130-400)
[2017-10-24] MEDS ORDERED: TYLENOL W/CODEI1 TAB PO (06:45)
[2017-10-24 07:06] VITALS: BP 134/78
== END 2017-10-24 06:53 | disposition home or self-care (01) ==
LOC: D.ER 05:06
PROVIDERS: Emergency Medicine
DX: D64.9 Anemia, unspecified (principal); M54.5 Low back pain; N28.9 Disorder of kidney and ureter, unspecified; W06.XXXA Fall from bed, initial encounter; Y93.89 Activity, other specified; Y92.013 Bedroom of single-family (private) house as the place of occurrence of the external cause

== ENCOUNTER 2017-11-07 08:27 | Outpatient (CLI) | payer MEDICARE, OTHER ==
[~2017-11-07] VITALS: Ht 175.3 cm; Wt 60.5 kg
[~2017-11-07 08:27] MED LIST changes: +TYLENOL W/CODEI1 TAB PO
[2017-11-07 09:32] VITALS: BP 99/52; Ht 175.3 cm; Wt 60.5 kg
[2017-11-07] MEDS ORDERED: NAPROSYN500 MG PO (09:36)
[2017-11-07] MEDS ORDERED: SEROQUEL100 MG PO (09:37)
[2017-11-07] MEDS ORDERED: STOOL SOFTENER100 M1 PO (09:38)
[2017-11-07] MEDS ORDERED: VITAMIN B-12500 MC1 PO (09:38)
== END 2017-11-07 16:35 | disposition home or self-care (01) ==
LOC: D.OPS 08:27
DX: D64.9 Anemia, unspecified (principal); Z01.812 Encounter for preprocedural laboratory examination

== ENCOUNTER 2018-05-23 16:24 | Inpatient (IN) | payer MEDICARE, OTHER ==
[~2018-05-23] VITALS: Ht 175.3 cm; Wt 69.0 kg
[~2018-05-23 16:24] MED LIST changes: +NAPROSYN500 MG PO; +SEROQUEL100 MG PO; +STOOL SOFTENER100 M1 PO; +VITAMIN B-12500 MC1 PO
[2018-05-23] MEDS ORDERED: KLONOPIN1 MG PO (19:24)
[2018-05-23] MEDS ORDERED: PROTONIX40 MG PO (19:24)
[2018-05-23] MEDS ORDERED: TRAZODONE HCL150 MG PO (19:25)
[2018-05-23 21:10] VITALS: BP 138/84; BMI 21.4
[2018-05-24 07:13] VITALS: BP 138/84
[2018-05-24 07:45] LABS: BASOPHILS 0.5 % (0-2); EOSINOPHILS 10.3 % (0-7); HEMATOCRIT 33.6 % (42.0-54.0); HEMOGLOBIN 10.3 g/dL (13.5-17.5); IMMATURE GRANULOCYTES 0.2 % (0-5); LYMPHOCYTES 28.3 % (15-50); MCH 24.2 pg (26.0-34.0); MCHC 30.7 g/dL (31.0-37.0); MCV 79.1 fL (80.0-100.0); MEAN PLATELET VOLUME 10.4 fL (7.4-10.4); MONOCYTES 13.2 % (2-11); NEUTROPHILS 47.5 % (40-80); RBC 4.25 10x6/uL (4.20-6.10); WBC 5.9 10x3/uL (4.8-10.8)
[2018-05-24 08:09] LABS: BILIRUBIN - TOTAL 0.19 mg/dL (0.2-1.3); CALCIUM 9.4 mg/dL (8.5-10.1); CARBON DIOXIDE 25.2 mmol/L (21.0-32.0); CHOL - HDL RATIO 3.4 ratio (2.3-4.9); CREATININE - SERUM 1.5 mg/dL (0.6-1.3); LDL-HDL RATIO 2.1 ratio (1.5-3.5); POTASSIUM - SERUM 4.2 mmol/L (3.5-5.1); THYROID STIMULATING HORMONE 2.16 uIU/mL (0.36-3.74)
[2018-05-24 08:17] LABS: PLATELET COUNT 165 10x3/uL (130-400)
[2018-05-24 08:21] VITALS: BP 137/76
[2018-05-24 15:02] VITALS: BMI 21.4
[2018-05-24 20:22] VITALS: BP 143/70
[2018-05-25 06:16] LABS: VITAMIN D 25 HYDROXY 28.7 ng/mL (30.0-100.0)
[2018-05-25 07:26] LABS: RAPID PLASMA REAGIN Non Reactive (Non Reactive)
[2018-05-25 08:59] VITALS: BP 154/84
--- NOTE | 2018-05-25 15:40 | PSY ---
PATIENT NAME:SATNAM LIU MEDICAL RECORD: [id number] : 35 LOCATION:[facility]8 ADMISSION DATE: 05/23/18 ACCOUNT: [id number] PSYCHIATRIC EVALUATION DATE OF EVALUATION: 05/24/18 IDENTIFYING DATA: The patient is 82 years old and he is admitted to the hospital on a voluntary basis. CHIEF COMPLAINT: Homicidal threats. HISTORY OF PRESENT ILLNESS: The patient apparently has a history of dementia. He is followed on an outpatient basis by Dr. Owen. He has become convinced that his is having an affair. There does not seem to be any evidence that is true. He is just paranoid and believes it, but even if it were true, he is saying he is going to kill her. When I asked him about this, he will give me a response. He is wearing an expression on his face that is hard for me to read. I cannot tell if he does not know what I am talking about or if he just does not want to discuss it, but either way, he will not give me information. He says he does not want to hurt anyone or himself. It is clear he is quite impaired cognitively. PAST MEDICAL HISTORY: Significant for stroke. He also has a history of hypertension and coronary artery disease along with peripheral vascular disease. He has chronic back pain and osteoarthritic changes. PAST PSYCHIATRIC HISTORY: Significant for an established diagnosis of dementia, although it is unclear when that diagnosis was made and how long it has been present. He is not able to give information about this and I think that is a true lack of recollection. 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 ALLERGIES: PENICILLIN, ASPIRIN, SALICYLATE. CURRENT MEDICATIONS: Include MiraLax, Seroquel, Klonopin, Protonix, trazodone, and multiple vitamins. FAMILY HISTORY: Significant for cardiovascular disease and diabetes. SOCIAL HISTORY: The patient does not smoke or use drugs. He is . He has 4 children and is a combat from 2 wars. MENTAL STATUS EXAMINATION: The patient is awake, alert, and oriented to person, place, and somewhat to time and situation. His mood is flat. His affect is constricted. Thought processes are circumstantial. Memory, concentration, and abstraction abilities are moderately impaired. He denies that he would seek to harm himself or others. ASSETS: Supportive family members. LIABILITIES: Limited insight. DIAGNOSTIC IMPRESSION: AXIS I: Vascular dementia. AXIS II: None. AXIS III: Stroke, cardiovascular disease, coronary artery disease, hypertension, osteoarthritis, chronic back pain, diverticular disease, constipation, diabetes. AXIS IV: Moderate. AXIS V: Global assessment of functioning is 35. PLAN: At this time, the patient will be admitted to the hospital for a comprehensive medical, psychological, and social evaluation. He will be treated with both mood stabilizing and memory enhancing medications. His long-term prognosis is guarded. TRANSINT:[id number] Voice Confirmation ID: [id number] DOCUMENT ID: [id number] SARAH HAINES MD at 1540 CC: [id number] DICTATION DATE: 05/24/181705 COMPRESSION MOLDING MACHINE OPERATOR: 05/24/18 191 ADM IN [facility] [address] [place] [address]
[2018-05-25 22:55] VITALS: BP 132/79
[2018-05-26 08:00] VITALS: BP 126/84
[2018-05-26 08:29] LABS: APPEARANCE CLEAR (CLEAR); BILIRUBIN NEGATIVE (NEGATIVE); COLOR YELLOW (YELLOW); GLUCOSE NEGATIVE (NEGATIVE); KETONE NEGATIVE (NEGATIVE); NITRITE NEGATIVE (NEGATIVE); PROTEIN NEGATIVE (NEGATIVE); UROBILINOGEN NORMAL (NORMAL)
--- NOTE | 2018-05-26 11:00 | PN ---
PATIENT:SATNAM LIU MEDICAL RECORD: [id number] LOCATION:ER[facility]ina ADMISSION DATE: 05/23/18 PROGRESS NOTE DATE OF SERVICE: 05/25/2018 SUBJECTIVE: The patient's case was discussed with staff. He has no new complaint. OBJECTIVE: The patient is withdrawn and isolative, but has not been openly aggressive. He is sleeping and eating adequately. He has pretty poor insight about his situation. ASSESSMENT: Vascular dementia. PLAN: The patient is going to be given Namenda to assist with his cognitive impairment. He will be monitored for clinical changes associated with its use. His long-term prognosis is guarded. TRANSINT:[id number] Voice Confirmation ID: [id number] DOCUMENT ID: [id number] SARAH HAINES MD at 1100 CC: [id number] DICTATION DATE: 05/25/18 1613 FOOD COOKING MACHINE OPERATOR: 05/26/18 0002 ADM IN [place] [id number] [place] [address]
[2018-05-27 00:35] VITALS: BP 152/87
[2018-05-27 07:00] VITALS: BP 166/92
--- NOTE | 2018-05-27 10:05 | PN ---
PATIENT:SATNAM LIU MEDICAL RECORD: [id number] LOCATION:ERWIN [facility]112 ADMISSION DATE: 05/23/18 PROGRESS NOTE DATE OF SERVICE: 05/26/2018 SUBJECTIVE: The patient's case was discussed with staff. He has no new complaint. OBJECTIVE: The patient is fairly withdrawn and blunted. He has a severely depressed mood, but is not reporting any thoughts of harming himself. I am going to start him on an antidepressant medication. He will be treated with Effexor at a dose of 37.5 mg twice daily. His long-term prognosis is guarded. TRANSINT:[id number] Voice Confirmation ID: [id number] DOCUMENT ID: [id number] SARAH HAINES MD at 1005 CC: [id number] DICTATION DATE: 05/26/18 1154 PUBLIC WORKS MANAGER: 05/26/18 1300 ADM IN [place] [id number] [place] [id number]
[2018-05-27 20:22] VITALS: BP 154/91
[2018-05-28 07:00] VITALS: BP 136/65
--- NOTE | 2018-05-28 15:11 | PN ---
PATIENT:SATNAM LIU MEDICAL RECORD: [id number] LOCATION:[facility] ADMISSION DATE: 05/23/18 PROGRESS NOTE DATE OF SERVICE: 05/27/2018 SUBJECTIVE: The patient's case was discussed with staff. He has no new complaint. OBJECTIVE: The patient is in good behavioral control with limited insight about his condition. He generally tolerates his medicines well. ASSESSMENT: Vascular dementia. PLAN: Current medicines and therapies have been reviewed and will be maintained. Long-term prognosis is guarded. TRANSINT:[id number] Voice Confirmation ID: [id number] DOCUMENT ID: [id number] SARAH HAINES MD at 1511 CC: [id number] DICTATION DATE: 05/27/18 112 SNACK BAR COOK: 05/27/18 1836 ADM IN [place] [id number] [place] [address]
[2018-05-28 20:32] VITALS: BP 149/88
[2018-05-29 07:00] VITALS: BP 140/85
[2018-05-29 11:50] VITALS: Ht 175.3 cm; Wt 69.0 kg
--- NOTE | 2018-05-29 15:34 | PN ---
PATIENT:SATNAM LIU MEDICAL RECORD: [id number] LOCATION:[facility] ADMISSION DATE: 05/23/18 PROGRESS NOTE DATE OF SERVICE: 05/28/2018 SUBJECTIVE: The patient's case was discussed with staff. He has no new complaint. OBJECTIVE: The patient is in good behavioral control. He has poor insight about his condition. He has been tolerating his medicines well. ASSESSMENT: Vascular dementia. PLAN: The patient will have his Seroquel reduced and will be started on Trilafon. His long-term prognosis is guarded. TRANSINT:[id number] Voice Confirmation ID: [id number] DOCUMENT ID: [id number] SARAH HAINES MD at 1534 CC: [id number] DICTATION DATE: 05/28/18 1544 ORDERING BOX OPERATOR: 05/28/18 1825 ADM IN [place] [address] [place] [id number]
[2018-05-29 19:45] VITALS: BP 130/80
--- NOTE | 2018-05-30 15:01 | PN ---
PATIENT:SATNAM LIU MEDICAL RECORD: [id number] LOCATION:[facility] ADMISSION DATE: 05/23/18 PROGRESS NOTE DATE OF SERVICE: 05/29/2018 SUBJECTIVE: The patient's case was discussed with staff. He has no new complaint. OBJECTIVE: The patient is only partially oriented. He has very limited insight about his situation. He is sleeping reasonably well. ASSESSMENT: No change in diagnoses. PLAN: The patient's Seroquel will be discontinued. His long-term prognosis is guarded. TRANSINT:[id number] Voice Confirmation ID: [id number] DOCUMENT ID: [id number] SARAH HAINES MD at 1501 CC: [id number] DICTATION DATE: 05/29/18 1549 LEGAL SERVICE SPECIALIST: 05/29/18 1847 ADM IN [place] [id number] [place] [address]
[2018-05-30 20:18] VITALS: BP 127/71
--- NOTE | 2018-05-31 08:28 | PN ---
PATIENT:SATNAM LIU MEDICAL RECORD: [id number] LOCATION:[facility] ADMISSION DATE: 05/23/18 PROGRESS NOTE DATE OF SERVICE: 05/30/2018 SUBJECTIVE: The patient's case was discussed with staff. He has no new complaint. OBJECTIVE: The patient is tolerating his medicines well. He has pretty limited insight about his situation. He has not been aggressive in any particular way. ASSESSMENT: No change in diagnoses. PLAN: Current medicines have been reviewed and will be maintained. Long-term prognosis is guarded. TRANSINT:[id number] Voice Confirmation ID: [id number] DOCUMENT ID: [id number] SARAH HAINES MD at 0828 CC: [id number] DICTATION DATE: 05/30/181609 QUANTITATIVE ANALYST DEVELOPER: 05/30/18 161 ADM IN [facility] [address] [place] [address]
[2018-05-31 09:30] VITALS: BP 127/71
[2018-05-31] MEDS ORDERED: EFFEXOR37.5 MG PO (16:02)
[2018-05-31] MEDS ORDERED: PERPHENAZINE2 MG PO (16:02)
[2018-05-31] MEDS ORDERED: NAMENDA5 MG PO (16:02)
[2018-05-31] MEDS ORDERED: VITAMIN D5000 UNIT PO (16:02)
[2018-05-31 20:00] VITALS: BP 134/62
[2018-06-01 09:33] VITALS: BP 157/77
--- NOTE | 2018-06-02 12:33 | PN ---
PATIENT:SATNAM LIU MEDICAL RECORD: [id number] LOCATION:[facility] ADMISSION DATE: 05/23/18 PROGRESS NOTE DATE OF SERVICE: 05/31/2018 SUBJECTIVE: The patient's case was discussed with staff. He has no new complaint. OBJECTIVE: The patient is in good behavioral control with limited insight about his condition. He tolerates his medicines well. ASSESSMENT: Vascular dementia. PLAN: The patient is going to be transitioned out of the hospital tomorrow. Unfortunately, he is going to be unable to go to the intermediate because his simply cannot afford it. If she places him there, she will be destitute. She is going to take him home and care for him. He actually thinks that is marvelous and would prefer to go with her rather than to the intermediate of course. I am not sure how it is going to work out, but I do not see any evidence of acute or direct dangerousness. I think he is going to require more supervision than she is capable of providing, but I understand the situation; and given the improvement with these medication changes, may be it will work for some period of time. TRANSINT:[id number] Voice Confirmation ID: [id number] DOCUMENT ID: [id number] SARAH HAINES MD at 1233 CC: [id number] DICTATION DATE: 05/31/18 1604 FORENSIC PSYCHIATRIST: 05/31/18 1800 DIS IN 06/01/18 [place] [id number] [place] [address]
== END 2018-06-01 10:30 | disposition home or self-care (01) | DRG 57 ==
LOC: D.PSYCH 16:24
PROVIDERS: ADMIT Psychiatry & Neurology Psychiatry; ATTEND Psychiatry & Neurology Psychiatry
DX: I69.318 Other symptoms and signs involving cognitive functions following cerebral infarction (principal); F01.51 Vascular dementia, unspecified severity, with behavioral disturbance; N17.9 Acute kidney failure, unspecified; I25.10 Atherosclerotic heart disease of native coronary artery without angina pectoris; I10 Essential (primary) hypertension; M19.90 Unspecified osteoarthritis, unspecified site; K57.90 Diverticulosis of intestine, part unspecified, without perforation or abscess without bleeding; M54.9 Dorsalgia, unspecified; G89.29 Other chronic pain; K59.00 Constipation, unspecified; E11.9 Type 2 diabetes mellitus without complications; F41.8 Other specified anxiety disorders; F22 Delusional disorders; K21.9 Gastro-esophageal reflux disease without esophagitis; D64.9 Anemia, unspecified; Z74.09 Other reduced mobility; E55.9 Vitamin D deficiency, unspecified; E53.8 Deficiency of other specified B group vitamins

== ENCOUNTER 2018-12-08 22:38 | Emergency (ER) | payer MEDICARE, OTHER ==
[~2018-12-08] VITALS: Ht 175.3 cm; Wt 72.7 kg
[~2018-12-08 22:38] MED LIST changes: +KLONOPIN1 MG PO; +NAMENDA5 MG PO; +PERPHENAZINE2 MG PO; +PROTONIX40 MG PO; +TRAZODONE HCL150 MG PO; +VITAMIN D5000 UNIT PO
[2018-12-08 22:43] VITALS: Ht 175.3 cm; Wt 72.7 kg
[2018-12-08 23:10] LABS: CALCIUM 10.5 mg/dL (8.5-10.1); CARBON DIOXIDE 26.2 mmol/L (21.0-32.0); CREATININE - SERUM 1.6 mg/dL (0.6-1.3); HEMATOCRIT 42.7 % (42.0-54.0); HEMOGLOBIN 13.5 g/dL (13.5-17.5); MCH 26.8 pg (26.0-34.0); MCHC 31.6 g/dL (31.0-37.0); MCV 84.9 fL (80.0-100.0); MEAN PLATELET VOLUME 10.5 fL (7.4-10.4); PLATELET COUNT 140 10x3/uL (130-400); POTASSIUM - SERUM 4.2 mmol/L (3.5-5.1); RBC 5.03 10x6/uL (4.20-6.10); RDW 17.6 % (11.5-14.5); WBC 22.9 10x3/uL (4.8-10.8)
[2018-12-08 23:15] LABS: ALBUMIN 3.1 g/dL (3.4-5.0); BILIRUBIN - TOTAL 0.6 mg/dL (0.2-1.3); PROTEIN - SERUM 7.6 g/dL (6.4-8.2)
[2018-12-08 23:47] LABS: EOSINOPHILS 1 % (0-7); LYMPHOCYTES 9 % (15-50); MONOCYTES 4 % (2-11); NEUTROPHILS 81 % (40-80)
[2018-12-08 23:48] LABS: PLATELET ESTIMATE NORMAL; SMUDGE CELLS OCC
[2018-12-09 00:11] LABS: APPEARANCE HAZY (CLEAR); COLOR YELLOW (YELLOW); GLUCOSE NEGATIVE (NEGATIVE); NITRITE NEGATIVE (NEGATIVE); PROTEIN TRACE mg/dL (NEGATIVE)
[2018-12-09 00:12] LABS: BACTERIA MODERATE /hpf (NEGATIVE); BILIRUBIN NEGATIVE (NEGATIVE); EPITHELIAL CELLS NSEEN /hpf (0-5); KETONE NEGATIVE (NEGATIVE); UROBILINOGEN NORMAL (NORMAL); WHITE CELLS - URINE 25-50 /hpf (NEGATIVE)
[2018-12-09] MEDS ORDERED: OMNICEF300 MG PO (01:39)
[2018-12-09 02:20] VITALS: BP 123/77
== END 2018-12-09 02:20 | disposition home or self-care (01) ==
LOC: D.ER 22:38
PROVIDERS: Family Medicine
DX: N39.0 Urinary tract infection, site not specified (principal); F03.90 Unspecified dementia, unspecified severity, without behavioral disturbance, psychotic disturbance, mood disturbance, and anxiety

== ENCOUNTER → 2020-07-27 17:43 | Outpatient (CLI) | payer MEDICARE, OTHER ==
[2018-12-08 22:43] VITALS: BMI 23.6
[~2020-07-27 17:43] MED LIST changes: +OMNICEF300 MG PO
[2020-07-27 18:29] LABS: HEMATOCRIT 41.2 % (42.0-54.0); HEMOGLOBIN 13.4 g/dL (13.5-17.5); LYMPHOCYTE ABS# 2.43 10x3/uL (1.32-3.57); MCH 30.8 pg (26.0-34.0); MCHC 32.5 g/dL (31.0-37.0); MCV 94.7 fL (80.0-100.0); MEAN PLATELET VOLUME 12.7 fL (7.4-10.4); NEUTROPHIL ABS# 3.36 10x3/uL (1.78-5.38); RBC 4.35 10x6/uL (4.20-6.10); RDW 14.9 % (11.5-14.5); WBC 7.3 10x3/uL (4.8-10.8)
[2020-07-27 18:31] LABS: PLATELET COUNT 97 10x3/uL (130-400)
[2020-07-27 18:57] LABS: ALBUMIN 3.3 g/dL (3.4-5.0); ANION GAP 14.9 mmol/L (8-16); BILIRUBIN - TOTAL 0.18 mg/dL (0.2-1.3); CALCIUM 9.2 mg/dL (8.5-10.1); CARBON DIOXIDE 22.3 mmol/L (21.0-32.0); CHOL - HDL RATIO 4.5 ratio (2.3-4.9); CREATININE - SERUM 1.4 mg/dL (0.6-1.3); LDL-HDL RATIO 2.5 ratio (1.5-3.5); POTASSIUM - SERUM 4.2 mmol/L (3.5-5.1); PROTEIN - SERUM 6.4 g/dL (6.4-8.2); THYROID STIMULATING HORMONE 1.41 uIU/mL (0.36-3.74)
[2020-07-27 19:01] LABS: EOSINOPHILS 13 % (0-7); LYMPHOCYTES 33 % (15-50); MONOCYTES 7 % (2-11); NEUTROPHILS 46 % (40-80); PLATELET ESTIMATE DECREASED
== END | disposition home or self-care (01) ==
LOC: D.LABREF 17:43
PROVIDERS: ATTEND Family Medicine
DX: I10 Essential (primary) hypertension (principal)